=== PATIENT | female | born 1980 | race Hispanic/Latino ===

== ENCOUNTER 2018-11-28 10:54 | Emergency (ER) | payer OTHER ==
--- NOTE | 2018-11-28 11:32 | Emergency Department Report ---
Blank Doc - Documentation Documentation: This is a 38-year-old female that presents with abnormal "red blood cell" from detox program. This initial assessment/diagnostic orders/clinical plan/treatment(s) is/are subject to change based on patient's health status, clinical progression and re- assessment by fellow clinical providers in the ED. Further treatment and workup at subsequent clinical providers discretion. Patient/guardians urged not to elope from the ED as their condition may be serious if not clinically assessed and managed. Initial orders include: 1- Patient sent to [facility] for further evaluation and treatment 2- labs
[2018-11-28 11:47] LABS: Basophils % (Auto) 0.4 % (0.0-1.8); Eosinophils # (Auto) 0.1 K/mm3 (0.0-0.4); Eosinophils % (Auto) 0.6 % (0.0-4.3); Hematocrit 36.3 % (30.3-42.9); Hemoglobin 12.3 gm/dl (10.1-14.3); Lymphocytes # (Auto) 1.6 K/mm3 (1.2-5.4); Mean Corpuscular HGB Conc 34 % (30-34); Mean Corpuscular Volume 99 fl (79-97); Monocytes # (Auto) 0.6 K/mm3 (0.0-0.8); Monocytes % (Auto) 5.7 % (0.0-7.3); Platelet Count 587 K/mm3 (140-440); Red Blood Count 3.66 M/mm3 (3.65-5.03); Red Cell Distribution Width 15.8 % (13.2-15.2)
[2018-11-28 12:08] LABS: BUN/Creatinine Ratio 6; Blood Urea Nitrogen 3 mg/dL (7-17); Calcium 8.8 mg/dL (8.4-10.2); Hemolysis Index 2
--- NOTE | 2018-11-28 13:25 | Emergency Department Report ---
Chief Complaint: Medical Clearance Stated Complaint: RED BLOOD COUNT Time Seen by Provider: 11/28/18 11:28 - HPI History of Present Illness: This is a 38-year-old with no medical history who was sent by detox center due to her elevated platelets. Patient was able to be ventilated and have her labs redrawn. Patient denies any symptoms of any medical conditions. Patient does state that she cut herself in a couple of places she was shaving. Otherwise she has normal being internal or external injuries - ROS Review of Systems: Denies fever, trauma, chest pain, shortness of breath, all other symptoms - Exam Vital Signs: Vital Signs 11/28/18 11:28 Temperature 98.1 F Pulse Rate 124 H Respiratory 18 Rate Blood Pressure 121/86 O2 Sat by Pulse 98 Oximetry Physical Exam: GENERAL: Alert and oriented x3, no apparent distress, Normal Gait, atraumatic. HEAD: Head is normocephalic and a-traumatic. LUNGS: Symetrical with respiration, No wheezing, no rales or crackles, CTAB. HEART: S1, S2 present, regular rate and rhythm without murmur, no rubs, no gallops. Non tender to palpation SKIN: Warm and dry, monitor abrasion to knees, hand, nonbleeding. No ulceration or induration present. MSE screening note: Focused history and physical exam performed. Due to findings the following was ordered: ED Medical Decision Making - Lab Data Result diagrams: 11/28/18 11:36 11/28/18 11:36 - Medical Decision Making 38-year-old female presents with medical clearance back to [facility] Labs are redrawn. Labs her. Given to patient to take with her to [facility]. Platelets decreased in range from 600 to 500. Discussed with patient that according to her recent lab draw her platelets to decrease over time to return back to his normal range and the absence of disease or any disorder. Patient is speaking in clear sentences. She has no neurological deficit. ED Disposition for MSE Clinical Impression: Thrombocytosis Disposition: - TO HOME OR SELFCARE Is pt being admited?: No Does the pt Need Aspirin: No Condition: Stable Additional Instructions: Make sure to follow up with the primary care physician as discussed. Take all your medications as you've been prescribed. If you have any worsening symptoms or develop new symptoms please return to ED immediately. Referrals: [facility] [Provider Group] - 3-5 Days Forms: Accompanied Note, Work/School Release Form(ED) Time of Disposition: 13:24
[2018-11-28 13:34] VITALS: BP 124/84
== END 2018-11-28 13:30 | disposition home or self-care (01) ==
LOC: ED 10:54
DX: D47.3 Essential (hemorrhagic) thrombocythemia (principal)
CPT/HCPCS: 36415; 80048; 84703; 85025; 99283